=== PATIENT | female | born 1930 | race Caucasian/White ===

== ENCOUNTER 2017-07-12 10:19 | Inpatient (IN) | payer MEDICARE, OTHER ==
[~2017-07-12] VITALS: Ht 152.4 cm; Wt 60.3 kg
--- NOTE | ~2017-07-12 | HP ---
History And Physical [address] [place]. [address] NAME: GREER STRAUSS : [birth year] STATUS : ADM IN [facility]#: [id number] AGE: 87 ADM/REG DATE : 07/12/17 MR#: [id number] REPORT SERV DATE: 07/12/17 DICTATED BY: BERTIN AMARAL DATE: 07/12/17 REPORT STATUS : Draft TRANSCRIBED BY: MODJesús DATE: 07/12/17 DATE OF ADMISSION: 07/12/2017 CHIEF COMPLAINT: Shortness of breath. BRIEF HISTORY OF PRESENT ILLNESS: The patient is an 87-year-old white female with multiple chronic medical issues who was in Dr. Walker Caruso's office today for iron infusion for her chronic iron-deficiency anemia. Apparently, she had significant shortness of breath and weakness and was found to have a O2 saturation on room air at 85%. This patient normally does not wear oxygen at home. This patient has denied any cough. She has not had any fever or chills. She has not had any nausea, vomiting. Her fatigue has been her biggest problem. She denies any chest pain. She has not had any abdominal pain. She has chronic back pain due to scoliosis. Otherwise, she says she was doing okay and was in her usual state of health. REVIEW OF SYSTEMS: A 10-point review of systems is negative. PAST MEDICAL HISTORY: Significant for: 1. Chronic atrial fibrillation and not on any anticoagulation at this time due to anemia. 2. Sick sinus syndrome, status post pacemaker placement. 3. Hypertension. 4. Recurrent urinary tract infection. 5. History of hypothyroidism. 6. Pulmonary arterial hypertension with nocturnal O2 therapy. 7. Multivalvular heart disease with regurgitation. 8. Chronic pain syndrome. 9. Dementia. PAST SURGICAL HISTORY: Significant for pacemaker, hysterectomy, appendectomy, adhesions surgery, breast biopsy, and tonsillectomy. ALLERGIES: MANGOES. HOME MEDICATIONS: Include amiodarone 200 mg once daily, Norvasc 5 mg p.o. twice daily, aspirin 81 mg once daily, Lipitor 40 mg once at bedtime, Lasix 20 mg once daily, [place] 10/325 one tablet three times daily p.r.n., Synthroid 100 mcg once daily, Cozaar 100 mg once daily, magnesium oxide, omega-3 fatty acids 1000 mg twice daily, Protonix 40 mg once at breakfast, MiraLAX one packet daily p.r.n., and potassium 20 mEq p.o. daily. SOCIAL HISTORY: She lives with the daughter and self-sufficient in ADLs. No alcohol, tobacco, or illicit substances. FAMILY HISTORY: Father with coronary artery disease. Mother with colon cancer. PHYSICAL EXAMINATION: History And Physical [address] [address] NAME: GREER STRAUSS : [birth year] STATUS : ADM IN [facility]#: [id number] AGE: 87 ADM/REG DATE : 07/12/17 MR#: [id number] REPORT SERV DATE: 07/12/17 DICTATED BY: BERTIN AMARAL DATE: 07/12/17 REPORT STATUS : Draft TRANSCRIBED BY: RONAK DATE: 07/12/17 GENERAL: White female, lying on a gurney, appears to be in no obvious respiratory distress, but she is confused due to her underlying dementia. VITAL SIGNS: Blood pressure is 181/79, saturation of 97%, temperature is 100.1, and pulse is 75. HEENT: Head is normocephalic, atraumatic. Pupils are equal, round, and reactive to light. Extraocular muscles are intact. Sclerae anicteric. Conjunctivae normal. Oropharynx is without lesion. Tongue protrudes to midline. Uvula midline. Dry mucous membranes. NECK: Supple. No jugular venous distention. No carotid bruits or thyromegaly is appreciated. No lymphadenopathy in the neck is palpable. HEART: Regular rate rhythm. No murmurs. There are significant 2/6 systolic murmur heard in all areas of the precordium. There is a pacemaker felt in the left upper chest. LUNGS: Bilateral wheezing with rhonchi worse on the right side than on the left. No evidence of any focal consolidation. ABDOMEN: Soft, nontender, good bowel sounds. No rebound or guarding. No organomegaly. EXTREMITIES: Without cyanosis or clubbing. She has 1+ pitting edema in both lower extremities. MUSCULOSKELETAL: Seems to be normal. NEUROLOGICAL: She is able to follow commands, confused, strength is equal and symmetrical. LABORATORY DATA: No labs are available at this time. IMPRESSION: 1. Possibility of community-acquired pneumonia. 2. Hypoxic respiratory failure. 3. Sick sinus syndrome, status post pacemaker. 4. Chronic atrial fibrillation. 5. Iron-deficiency anemia. 6. Hypertension. 7. Pulmonary hypertension. 8. Valvular heart disease. 9. Chronic pain. 10.Hypothyroidism. PLAN: The patient will be admitted. IV antibiotics will be given. Blood cultures will be done. Portable chest x-ray will be obtained. IV fluids will be started. We will give her aggressive nebulizing treatments and O2 support as needed. Home medications will be addressed, and the patient remains a full code for now. RAINA/RONAK Bertin Amaral M.D. / [id number] History And Physical [address] [address] NAME: GREER STRAUSS : [birth year] STATUS : ADM IN [facility]#: [id number] AGE: 87 ADM/REG DATE : 07/12/17 MR#: [id number] REPORT SERV DATE: 07/12/17 DICTATED BY: BERTIN AMARAL. DATE: 07/12/17 REPORT STATUS : Draft TRANSCRIBED BY: RONAK DATE: 07/12/17 CC: Janna Vanessa IV, M.D.
--- NOTE | ~2017-07-12 | DS ---
Discharge Summary [address] [place]. [address] NAME: GREER STRAUSS : [birth year] STATUS : DIS IN PAT#: [id number] AGE: 87 ADM/REG DATE : 07/12/17 MR#: [id number] REPORT SERV DATE: 07/19/17 DICTATED BY: BERTIN AMARAL DATE: 07/18/17 REPORT STATUS : Draft TRANSCRIBED BY: MODL DATE: 07/18/17 ADMISSION DATE: 07/12/2017 DISCHARGE DATE: 07/18/2017 DISCHARGE DIAGNOSES: 1. Community-acquired pneumonia. 2. Chronic atrial fibrillation. 3. Sick sinus syndrome, status post pacemaker placement. 4. Hypertension. 5. Hypothyroidism. 6. Pulmonary arterial hypertension with nocturnal O2 therapy at home. 7. Multivalvular heart disease with regurgitation. 8. Chronic pain syndrome. 9. Dementia. 10.Iron-deficiency anemia, followed by Dr. Caruso in the outpatient setting. CONSULTANTS DURING THIS HOSPITALIZATION: None. INVASIVE PROCEDURES DONE DURING THIS HOSPITALIZATION: None. BRIEF HISTORY OF PRESENT ILLNESS: The patient is an 87-year-old white female, who presented from Dr. Caruso's office for low O2 saturation and evidence of pneumonia. For detailed history and physical exam, please see my note dictated on 07/12/2017. HOSPITAL COURSE: After being admitted to the hospital, this patient was placed on broad- spectrum antibiotics, aggressive nebulizing treatments, blood cultures were done, chest x- ray was repeated, and home medications were addressed. This patient continued to do well. She was to receive IV iron infusion which she received during this hospitalization. Over the last six days, this patient has finished her course of azithromycin, and she remains on Rocephin. Her pneumonia has gotten better even though not completely clear from a chest x- ray standpoint. Clinically, she has improved. She is off O2 and saturating 92% on room air. We will have Physical Therapy assess her for any home needs and have home health care and physical therapy ordered in the home setting. We did interrogate her pacer and there were no issues with the pacer. She remains medically stable otherwise and is being discharged in stable condition. The patient did suffer a small laceration to the right lower extremity by hitting her leg on the bed rail which was locally dressed. DISCHARGE DISPOSITION: Home. DISCHARGE ACTIVITY: As tolerated with assistance. DISCHARGE DIET: Low sodium diet. DISCHARGE MEDICATIONS: Omnicef 300 mg p.o. twice daily for three more days to finish a total of 10-day course, DuoNebs one neb four times daily via nebulizer, Norvasc 5 mg twice daily, aspirin 81 mg once daily, Lipitor 40 mg once at bedtime, Lasix 20 mg once daily, [place] Discharge Summary [address] [address] NAME: GREER STRAUSS : [birth year] STATUS : DIS IN PAT#: [id number] AGE: 87 ADM/REG DATE : 07/12/17 MR#: [id number] REPORT SERV DATE: 07/19/17 DICTATED BY: BERTIN AMARAL DATE: 07/18/17 REPORT STATUS : Draft TRANSCRIBED BY: RONAK DATE: 07/18/17 10/ one tablet three times daily, levothyroxine 100 mcg p.o. once every morning, losartan 100 mg p.o. once every morning, omega-3 fatty acids, Protonix 40 mg before breakfast, MiraLAX powder one packet once daily p.r.n. for constipation, magnesium oxide 400 mg p.o. every morning, potassium 20 mEq p.o. once daily. DISCHARGE FOLLOWUP: With Gurinder Hadley NP in one week for a repeat chest x-ray. With Dr. Walker Caruso as previously scheduled or when next iron infusion is due. More than 30 minutes spent planning this patient's discharge, reconciling medications, writing prescriptions, discussing hospital care, and followup with the daughter at the bedside and documenting this discharge. RAINA/RONAK Bertin Amaral M.D. / [id number] CC: Janna Vanessa CHELSEY Mark S Womack IV, M.D.
[~2017-07-12 10:19] MED LIST: AMOXIL500 MG PO; BETAPACE80 PO; BYSTOLIC2.5 MG PO; CARASPUDL PO; CEFT2 PO; CORDARONE PO; COUMADIN4 MG PO; COZAAR100 MG PO; DARVN100 PO; FERROUS SULF325 M1 PO; FISH OIL OTC PO; FISH-EPA1000 MG PO; HALF81 PO; IRON325 MG PO; JANTOVEN1 MG PO; JANTOVEN2.5 MG PO; JANTOVEN3 MG PO; KDUR20 PO; KLOR-CON 1010 MEQ PO; KLOR-CON M2020 MEQ PO; L20 PO; L40 PO; L80 PO; LEVOTHYROXIN100 MCG PO; LIPITOR40 PO; LOP25 PO; LORTAB 5 PO; MACROBID PO; MACRODANTIN 10100 MG PO; MAGOX4 PO; MEVACOR PO; MIRALAXPKT PO; MULTIPLE VIT PO; NITROMIST400 MCG SL; NITROQUICK0.4 MG SL; NORCO1 TA1 PO; NORCO1 TAB PO; NORV10 PO; NORV5 PO; PACERONE200 MG PO; PRILO PO; PROAIR HFA INH; PROTONIX PO; SUCR PO; SYN1 PO; VENTOLIN HFA INH
[2017-07-12] MEDS ORDERED: MIRALAX POWDER1 PKT PO (12:10)
[2017-07-12 15:10] LABS: BASOPHILS 0.1 %; BASOPHILS ABSOLUTE 0.01 10/3/uL (0.0-0.16); EOSINOPHILS 0 %; HEMOGLOBIN 8.3 g/dL (12.0-16.0); IMMATURE GRANULOCYTES 0.3 %; IMMATURE GRANULOCYTES ABSOLUTE 0.04 10/3/uL (0.0-0.11); LYMPHOCYTES 3.9 %; LYMPHOCYTES ABSOLUTE 0.53 10/3/uL (0.67-4.30); MEAN CORPUS HGB CONC 31.9 g/dL (32.0-36.0); MEAN CORPUSCULAR HEMOGLOB 28.1 pg (26.0-34.0); MEAN PLATELET VOLUME 8.7 fL (9.2-13.0); MONOCYTES 9.3 %; MONOCYTES ABSOLUTE 1.28 10/3/uL (0.21-1.20); NEUTROPHILS 86.4 %; NEUTROPHILS ABSOLUTE 11.85 10/3/uL (2.02-8.40); PLATELET COUNT 242 10/3/uL (150-400); RBC DISTRIBUTION WIDTH 17.6 % (12.0-16.0); RED CELL COUNT 2.95 10/6/uL (4.0-5.6)
[2017-07-12 15:12] LABS: MANUAL DIFF NO %; MEAN CORPUSCULAR VOLUME 88.1 fL (80-100); WHITE BLOOD CELLS 13.7 10/3/uL (4.5-10.5)
[2017-07-12 15:30] LABS: A/G RATIO 0.8 (0.7-1.9); ALBUMIN 3.1 G/DL (3.5-5.0); ALKALINE PHOSPHATASE 84 U/L (45-117); CALCIUM, SERUM 9.1 MG/DL (8.5-10.4); CHLORIDE, SERUM 100 MMOL/L (96-112); CO2 (CARBON DIOXIDE) 24 MMOL/L (24-34); GFR AFRICAN AMERICAN 58 ML/MIN (>=60); GFR NON AFRICAN AMERICAN 50 ML/MIN (>=60); GLOBULIN 3.7 G/DL (2.5-4.1); PHOSPHORUS, SERUM 1.7 MG/DL (2.5-4.5); POTASSIUM, SERUM 4.6 MMOL/L (3.5-5.3); SGOT(AST) 16 U/L (5-40); SGPT(ALT) 20 U/L (5-65); SODIUM, SERUM 132 MMOL/L (135-148); TOTAL PROTEIN 6.8 G/DL (6.0-8.5)
[2017-07-12 15:31] LABS: BUN (BLOOD UREA NITROGEN) 17 MG/DL (6-23); GLUCOSE, SERUM 139 MG/DL (60-99); TOTAL BILIRUBIN 0.5 MG/DL (0-1.2)
[2017-07-12 15:40] LABS: PROCALCITONIN 0.33 ng/mL (<0.5)
[2017-07-13 07:27] LABS: BASOPHILS 0.2 %; BASOPHILS ABSOLUTE 0.02 10/3/uL (0.0-0.16); EOSINOPHILS 1.2 %; EOSINOPHILS ABSOLUTE 0.11 10/3/uL (0.0-0.53); HEMATOCRIT 26.1 % (36.0-48.0); HEMOGLOBIN 8.2 g/dL (12.0-16.0); IMMATURE GRANULOCYTES 0.2 %; IMMATURE GRANULOCYTES ABSOLUTE 0.02 10/3/uL (0.0-0.11); LYMPHOCYTES 6.7 %; LYMPHOCYTES ABSOLUTE 0.63 10/3/uL (0.67-4.30); MANUAL DIFF NO %; MEAN CORPUS HGB CONC 31.4 g/dL (32.0-36.0); MEAN CORPUSCULAR HEMOGLOB 27.7 pg (26.0-34.0); MEAN CORPUSCULAR VOLUME 88.2 fL (80-100); MEAN PLATELET VOLUME 8.5 fL (9.2-13.0); MONOCYTES ABSOLUTE 1.12 10/3/uL (0.21-1.20); NEUTROPHILS 79.7 %; NEUTROPHILS ABSOLUTE 7.47 10/3/uL (2.02-8.40); PLATELET COUNT 218 10/3/uL (150-400); RBC DISTRIBUTION WIDTH 17.8 % (12.0-16.0); RED CELL COUNT 2.96 10/6/uL (4.0-5.6); WHITE BLOOD CELLS 9.4 10/3/uL (4.5-10.5)
[2017-07-13 07:52] LABS: ALBUMIN 2.7 G/DL (3.5-5.0); BUN (BLOOD UREA NITROGEN) 14 MG/DL (6-23); CALCIUM, SERUM 9.5 MG/DL (8.5-10.4); CHLORIDE, SERUM 102 MMOL/L (96-112); CO2 (CARBON DIOXIDE) 20 MMOL/L (24-34); CREATININE 0.73 MG/DL (0.55-1.02); GFR AFRICAN AMERICAN 85 ML/MIN (>=60); GFR NON AFRICAN AMERICAN 73 ML/MIN (>=60); GLUCOSE, SERUM 110 MG/DL (60-99); PHOSPHORUS, SERUM 2.1 MG/DL (2.5-4.5); POTASSIUM, SERUM 4.1 MMOL/L (3.5-5.3); SODIUM, SERUM 130 MMOL/L (135-148)
[2017-07-14 06:22] LABS: BASOPHILS 0.4 %; BASOPHILS ABSOLUTE 0.03 10/3/uL (0.0-0.16); EOSINOPHILS 1.8 %; EOSINOPHILS ABSOLUTE 0.15 10/3/uL (0.0-0.53); HEMATOCRIT 23.5 % (36.0-48.0); HEMOGLOBIN 7.4 g/dL (12.0-16.0); IMMATURE GRANULOCYTES 0.2 %; IMMATURE GRANULOCYTES ABSOLUTE 0.02 10/3/uL (0.0-0.11); LYMPHOCYTES 6.2 %; LYMPHOCYTES ABSOLUTE 0.51 10/3/uL (0.67-4.30); MEAN CORPUS HGB CONC 31.5 g/dL (32.0-36.0); MEAN CORPUSCULAR HEMOGLOB 27.7 pg (26.0-34.0); MEAN PLATELET VOLUME 8.3 fL (9.2-13.0); MONOCYTES 13.6 %; MONOCYTES ABSOLUTE 1.13 10/3/uL (0.21-1.20); NEUTROPHILS 77.8 %; NEUTROPHILS ABSOLUTE 6.45 10/3/uL (2.02-8.40); PLATELET COUNT 226 10/3/uL (150-400); RBC DISTRIBUTION WIDTH 17.9 % (12.0-16.0); RED CELL COUNT 2.67 10/6/uL (4.0-5.6); WHITE BLOOD CELLS 8.3 10/3/uL (4.5-10.5)
[2017-07-14 06:26] LABS: MANUAL DIFF NO %
[2017-07-14 07:00] LABS: ALBUMIN 2.5 G/DL (3.5-5.0); BUN (BLOOD UREA NITROGEN) 14 MG/DL (6-23); CALCIUM, SERUM 9.2 MG/DL (8.5-10.4); CHLORIDE, SERUM 103 MMOL/L (96-112); CO2 (CARBON DIOXIDE) 21 MMOL/L (24-34); CREATININE 0.73 MG/DL (0.55-1.02); GFR AFRICAN AMERICAN 85 ML/MIN (>=60); GFR NON AFRICAN AMERICAN 73 ML/MIN (>=60); GLUCOSE, SERUM 107 MG/DL (60-99); PHOSPHORUS, SERUM 2.3 MG/DL (2.5-4.5); SODIUM, SERUM 132 MMOL/L (135-148)
[2017-07-15 01:14] LABS: HEMATOCRIT 24.2 % (36.0-48.0); HEMOGLOBIN 8.1 g/dL (12.0-16.0)
[2017-07-15 10:42] LABS: WBC (NOT ORDERED) (RFLEX) 0 (0-5)
[2017-07-15 10:49] LABS: ASCORBIC ACID (UR NOT ORDER) NEG (NEG); BILIRUBIN, URINE NEGATIVE (NEG); KETONE, URINE NEGATIVE (NEG); LEUKOCYTE ESTERASE(NOT OR NEG (NEG)
[2017-07-16 05:21] LABS: BASOPHILS 0.4 %; BASOPHILS ABSOLUTE 0.03 10/3/uL (0.0-0.16); EOSINOPHILS 3.2 %; EOSINOPHILS ABSOLUTE 0.26 10/3/uL (0.0-0.53); HEMATOCRIT 26.1 % (36.0-48.0); HEMOGLOBIN 8.5 g/dL (12.0-16.0); IMMATURE GRANULOCYTES 0.2 %; IMMATURE GRANULOCYTES ABSOLUTE 0.02 10/3/uL (0.0-0.11); LYMPHOCYTES 9.8 %; MEAN CORPUS HGB CONC 32.6 g/dL (32.0-36.0); MEAN CORPUSCULAR HEMOGLOB 28.3 pg (26.0-34.0); MEAN PLATELET VOLUME 8.3 fL (9.2-13.0); MONOCYTES ABSOLUTE 1.14 10/3/uL (0.21-1.20); NEUTROPHILS 72.4 %; NEUTROPHILS ABSOLUTE 5.88 10/3/uL (2.02-8.40); PLATELET COUNT 230 10/3/uL (150-400); RBC DISTRIBUTION WIDTH 17.9 % (12.0-16.0); WHITE BLOOD CELLS 8.1 10/3/uL (4.5-10.5)
[2017-07-16 05:29] LABS: MANUAL DIFF NO %
[2017-07-17 05:39] LABS: BASOPHILS 0.4 %; BASOPHILS ABSOLUTE 0.03 10/3/uL (0.0-0.16); EOSINOPHILS 2.9 %; EOSINOPHILS ABSOLUTE 0.21 10/3/uL (0.0-0.53); HEMATOCRIT 27.8 % (36.0-48.0); HEMOGLOBIN 8.9 g/dL (12.0-16.0); IMMATURE GRANULOCYTES 0.4 %; IMMATURE GRANULOCYTES ABSOLUTE 0.03 10/3/uL (0.0-0.11); LYMPHOCYTES 8.2 %; MEAN CORPUSCULAR HEMOGLOB 28.3 pg (26.0-34.0); MEAN CORPUSCULAR VOLUME 88.3 fL (80-100); MEAN PLATELET VOLUME 8.6 fL (9.2-13.0); MONOCYTES 15.1 %; NEUTROPHILS ABSOLUTE 5.33 10/3/uL (2.02-8.40); PLATELET COUNT 289 10/3/uL (150-400); RBC DISTRIBUTION WIDTH 18.5 % (12.0-16.0); RED CELL COUNT 3.15 10/6/uL (4.0-5.6); WHITE BLOOD CELLS 7.3 10/3/uL (4.5-10.5)
[2017-07-17 05:48] LABS: MANUAL DIFF NO %
[2017-07-17 05:59] LABS: ALBUMIN 2.6 G/DL (3.5-5.0); BUN (BLOOD UREA NITROGEN) 12 MG/DL (6-23); CALCIUM, SERUM 9.9 MG/DL (8.5-10.4); CHLORIDE, SERUM 96 MMOL/L (96-112); CO2 (CARBON DIOXIDE) 24 MMOL/L (24-34); CREATININE 0.64 MG/DL (0.55-1.02); GFR AFRICAN AMERICAN 92 ML/MIN (>=60); GFR NON AFRICAN AMERICAN 79 ML/MIN (>=60); GLUCOSE, SERUM 96 MG/DL (60-99); PHOSPHORUS, SERUM 1.9 MG/DL (2.5-4.5); POTASSIUM, SERUM 4.3 MMOL/L (3.5-5.3); SODIUM, SERUM 129 MMOL/L (135-148)
[2017-07-18 06:33] LABS: BASOPHILS 0.7 %; BASOPHILS ABSOLUTE 0.05 10/3/uL (0.0-0.16); EOSINOPHILS 3.5 %; EOSINOPHILS ABSOLUTE 0.25 10/3/uL (0.0-0.53); HEMATOCRIT 29.4 % (36.0-48.0); HEMOGLOBIN 9.4 g/dL (12.0-16.0); IMMATURE GRANULOCYTES 0.6 %; IMMATURE GRANULOCYTES ABSOLUTE 0.04 10/3/uL (0.0-0.11); LYMPHOCYTES 6.7 %; LYMPHOCYTES ABSOLUTE 0.48 10/3/uL (0.67-4.30); MEAN CORPUSCULAR HEMOGLOB 28.4 pg (26.0-34.0); MEAN CORPUSCULAR VOLUME 88.8 fL (80-100); MEAN PLATELET VOLUME 8.6 fL (9.2-13.0); MONOCYTES ABSOLUTE 1.15 10/3/uL (0.21-1.20); NEUTROPHILS 72.5 %; NEUTROPHILS ABSOLUTE 5.21 10/3/uL (2.02-8.40); PLATELET COUNT 311 10/3/uL (150-400); RBC DISTRIBUTION WIDTH 19.4 % (12.0-16.0); RED CELL COUNT 3.31 10/6/uL (4.0-5.6); WHITE BLOOD CELLS 7.2 10/3/uL (4.5-10.5)
[2017-07-18 06:34] LABS: MANUAL DIFF NO %
[2017-07-18 06:48] LABS: ALBUMIN 2.6 G/DL (3.5-5.0); BUN (BLOOD UREA NITROGEN) 10 MG/DL (6-23); CALCIUM, SERUM 9.8 MG/DL (8.5-10.4); CHLORIDE, SERUM 93 MMOL/L (96-112); CO2 (CARBON DIOXIDE) 27 MMOL/L (24-34); CREATININE 0.65 MG/DL (0.55-1.02); GFR AFRICAN AMERICAN 91 ML/MIN (>=60); GFR NON AFRICAN AMERICAN 79 ML/MIN (>=60); GLUCOSE, SERUM 93 MG/DL (60-99); PHOSPHORUS, SERUM 1.9 MG/DL (2.5-4.5); POTASSIUM, SERUM 3.8 MMOL/L (3.5-5.3); SODIUM, SERUM 131 MMOL/L (135-148)
[2017-07-18] MEDS ORDERED: DUONEB INH (09:31)
[2017-07-18] MEDS ORDERED: OMNICEF300 PO (09:31)
== END 2017-07-18 15:46 | disposition home health service (06) | DRG 193 ==
LOC: ENRESERV → ENRESERVTM → ENRESERVDT → CDU1 11:17 → 5SO 11:17 → CDU1 12:04 → CDU2 15:20 → 5SO 07-13 02:07
PROVIDERS: Internal Medicine
PROC: 30233N1 Transfusion of Nonautologous Red Blood Cells into Peripheral Vein, Percutaneous Approach (ICD-10-PCS; principal; 2017-07-14)
DX: J18.9 Pneumonia, unspecified organism (principal); J96.01 Acute respiratory failure with hypoxia; I48.2 Chronic atrial fibrillation; I27.2 Other secondary pulmonary hypertension; F11.20 Opioid dependence, uncomplicated; F03.90 Unspecified dementia, unspecified severity, without behavioral disturbance, psychotic disturbance, mood disturbance, and anxiety; F05 Delirium due to known physiological condition; D50.9 Iron deficiency anemia, unspecified; I10 Essential (primary) hypertension; E03.9 Hypothyroidism, unspecified; G89.4 Chronic pain syndrome; Z95.0 Presence of cardiac pacemaker; Z79.82 Long term (current) use of aspirin
CPT/HCPCS: 36415; 71010; 71020; 80053; 80069; 81001; 83605; 83735; 84100; 84145; 85014; 85018; 85025; 86850; 86900; 86901; 86920; 87040; 87449; 94640; 94667; 94668; 97162-GP; A9270-GY; G8978-CL-GP; G8979-CI-GP; J0456; J1170; J1940; J2916; P9040